=== PATIENT | female | born 1985 | race Caucasian/White ===

== ENCOUNTER 2017-03-02 13:17 | Outpatient (CLI) | payer BC ==
--- NOTE | 2017-03-02 16:06 | CT ---
CTA OF THE ABDOMEN UTILIZING IV CONTRAST AND 3D REFORMATTED IMAGING 03/02/17 INDICATION: History of extreme hypertension. COMPARISON: None. TECHNIQUE: Multiple CTA images were obtained of the abdomen utilizing IV contrast and 3D reformatted imaging. Ax ial, coronal and sagittal reformatted images were constructed from the raw data at a separate worksta tion. FINDINGS: The abdominal aorta is of normal caliber. There is a variant vessel anatomy seen involving the proximal aorta. The common hepatic, splenic as w ell as the left gastric artery originates from the abdominal aorta. There is not an independent shira c trunk. The SMA origin is normal. There are single renal arteries bilaterally. These are widely patent. The I MA is widely patent. Both common iliac arteries are widely patent. No focal hepatic lesion is evident within the visualized aspects of the liver. The visualized pancrea s and spleen appear within normal limits. The adrenal glands are normal appearing. No free fluid or e nlarged lymph nodes are evidence. There is a fat containing paraumbilical hernia. No acute osseous ab normality. There is slight leftward curvature of the lumbar spine which may be positional in nature. IMPRESSION: No hemodynamically significant stenosis, occlusion or aneurysmal formation is evident involving the a bdominal vasculature. Specifically, the renal arteries appear to be widely patent and normal morpholo gically. Both kidneys symmetrically enhance and demonstrating no focal renal lesion. POS: YESSICA
[2017-03-02] MEDS ORDERED: Iopamidol 370 76% 100 ML VIAL ONE (17:28)
== END 2017-03-02 13:18 | disposition home or self-care (01) ==
LOC: CT 13:17
PROVIDERS: ATTEND Nurse Practitioner
DX: I15.9 Secondary hypertension, unspecified (principal)
CPT/HCPCS: 74175